=== PATIENT | female | born 1930 | race Caucasian/White ===

== ENCOUNTER 2017-03-08 12:50 | Emergency (ER) | payer MEDICARE, MEDICAID ==
[~2017-03-08] VITALS: Wt 113.4 kg
[~2017-03-08 12:50] MED LIST: ALDACTONE25 M1 PO; ALLOPURINOL300 MG PO; ARTIFICIAL TEAR15 M3 OPH; ARTIFICIAL TEAR15 ML OU; ASPI-COR81 M1 PO; ASPIRIN81 M1 PO; AUGMENTIN 875 M1 TA1 PO; BISACODYL10 MG R; BRIN20TA PO; CALMOSEPTINE1 OIN TP; CELEXA20 MG PO; CELEXA40 MG PO; CIPRO250 MG PO; CIPRO500 MG PO; DETROL2 MG PO; DIABETIC T100 MG/5 M PO; DIABETIC T100 MG/51 PO; DITROPAN5 MG PO; EXEL13.31 T; FLONASE 0.05% 121 EA NAS; HUMALOG100 U/ML SC; HYDROCODONE BIT1 T11 PO; IMDUR30 MG PO; ISOSORBIDE30 MG PO; K-DUR 2020 MEQ PO; K-DUR20 MEQ PO; LASIX40 MG PO; LASIX80 MG PO; LAXATIVE10 MG R; LEVEMIR100 U/ML SC; LOMOTIL 0.025 M1 TA1 PO; LOPRESSOR25 MG PO; Lopressor25 MG PO; MACROBID100 M1 PO; MILK OF MAGNESI1 TAB PO; MINERAL OIL; MIRALAX POWDER17 GM PO; MIRALAX17 GM/PACK PO; MOBIC15 MG PO; MOM30 M1 PO; MOM30 ML PO; MOTRIN400 MG PO; NAMENDA-28 PO; NEURONTIN300 MG PO; NEURONTIN600 MG PO; NKHM; NOVOLIN R100 U/ML SC; OXYBUTYNIN5 MG PO; PRAVACHOL40 MG PO; RISPERDAL M-TA0.5 MG PO; RISPERDAL0.25 MG PO; RISPERDAL0.5 MG PO; SEROQUEL100 MG PO; SEROQUEL25 MG PO; SEROQUEL50 MG PO; SIMETHICONE PO; SYNTHROID0.025 MG PO; TENORMIN0.5 MG/ML IV; TRAMADOL HCL50 MG PO; TYLENOL W/CODEI1 TA2 PO; TYLENOL325 M1 PO; TYLENOL500 MG PO; ULTRAM 50 MG ED2 TAB PO; VITAMIN D1000 IU PO; VITAMIN D400 I1 PO; WELLBUTRIN XL150 MG PO; Wellbutrin Xl150 MG PO; XANAX0.5 MG PO; [UNRECOGNIZED DRUG - CODE] PO; [UNRECOGNIZED DRUG - OTHER] PO; [UNRECOGNIZED DRUG - OTHER] RC
== END 2017-03-08 14:50 ==
LOC: ED 12:50
DX: S01.01XA Laceration without foreign body of scalp, initial encounter (principal); Z88.8 Allergy status to other drugs, medicaments and biological substances; Z79.899 Other long term (current) drug therapy; Z79.02 Long term (current) use of antithrombotics/antiplatelets; Z79.4 Long term (current) use of insulin; W18.39XA Other fall on same level, initial encounter; Y93.89 Activity, other specified; Y92.128 Other place in nursing home as the place of occurrence of the external cause; Y99.8 Other external cause status

== ENCOUNTER 2017-06-17 10:12 | Emergency (ER) | payer MEDICARE, MEDICAID ==
[~2017-06-17] VITALS: Ht 170.1 cm; Wt 113.4 kg
[2017-06-17 11:04] LABS: BASO % 0.5 % (0.0-1.0); EOS # 0.4 10*3/uL (0.0-0.4); EOS % 4.3 % (1.0-4.0); HEMATOCRIT 43.3 % (37.0-47.0); HEMOGLOBIN 14.3 g/dl (12.0-16.0); LYMPH # 3.6 10*3/uL (1.3-4.4); LYMPH % 42.5 % (27.0-41.0); MEAN CELL VOLUME 94.7 fl (81.0-99.0); MEAN CORPUSCULAR HGB 31.3 pg (27.0-31.0); MEAN PLATELET VOLUME 10.5 fl (9.6-12.3); MONO # 0.6 10*3/uL (0.1-1.0); MONO % 7.3 % (3.0-9.0); NEUT # 3.8 10*3/uL (2.3-7.9); NEUT % 45.2 % (47.0-73.0); PLATELET COUNT AUTOMATED 174 10*3/uL (130-400); RED BLOOD COUNT 4.57 10*6/uL (4.10-5.10); RED CELL DISTRI WIDTH 13.9 % (0-14.5); WHITE BLOOD COUNT 8.4 10*3/uL (4.8-10.8)
[2017-06-17 11:19] LABS: ALBUMIN 3.3 gm/dl (3.1-4.5); CREATININE 1.24 mg/dL (0.55-1.02); POTASSIUM 3.9 mmol/L (3.5-5.1); TOTAL PROTEIN 7.4 gm/dL (6.4-8.2)
[2017-06-17 11:21] LABS: BILIRUBIN NEGATIVE (NEGATIVE); BLOOD TRACE-INTACT (NEGATIVE); CLARITY CLOUDY (CLEAR); COLOR YELLOW (YELLOW); GLUCOSE NEGATIVE (NEGATIVE); KETONE NEGATIVE (NEGATIVE); LEUKO ESTERASE 3+ (NEGATIVE); NITRITE POSITIVE (NEGATIVE)
[2017-06-17 11:30] LABS: BACTERIA 4+; WBC TNTC wbc/hpf (0-5)
[2017-06-17] MEDS ORDERED: SEPTDS PO (12:44)
== END 2017-06-17 12:56 | disposition home or self-care (01) ==
LOC: ED 10:12
PROVIDERS: Emergency Medicine
DX: N39.0 Urinary tract infection, site not specified (principal); R41.82 Altered mental status, unspecified; R29.810 Facial weakness; Z79.82 Long term (current) use of aspirin; Z79.899 Other long term (current) drug therapy

== ENCOUNTER 2018-03-30 10:12 | Inpatient (IN) | payer MEDICARE, MEDICAID ==
[~2018-03-30] VITALS: Ht 162.6 cm; Wt 86.3 kg
--- NOTE | ~2018-03-30 | EKG ---
[place], [place] ELECTROCARDIOGRAM REPORT NAME: MOHIT LEY UNIT #: [id number] ROOM: 512 DOCTOR: ADRIANA DRAFT REPORT BIRTHDATE: [birth year] [facility] Test Date: 2018-03-30 Test Time: 10:39:57 Pat Name: MOHIT LYE Department: Room: 512 Gender: F [employer]: EKG.OK : 1930 Requested By: TESHA BUSTAMANTE DNP Order Number: [id number] Reading MD: Shantel Pappas MD Measurements Intervals [place] Rate: 61 P: 72 [place]: 159 QRS: 88 QRSD: 102 T: 76 QT: 431 QTc: 434 Interpretive Statements Sinus rhythm Borderline right axis deviation Electronically Signed On 03-31-2018 3:19:57 PST by Shantel Pappas MD CM:EKGRPT:ELECTROCARDIOGRAM REPORT [id number] TESHA WRIGHT DRAFT REPORT TESHA BUSTAMANTE DNP
[~2018-03-30 10:12] MED LIST changes: +LEVEMIR100 UNIT/1 IV; +SEPTDS PO
[2018-03-30 10:48] LABS: BASO % 0.5 % (0.0-1.0); EOS # 0.5 10*3/uL (0.0-0.4); EOS % 5.4 % (1.0-4.0); HEMATOCRIT 43.9 % (37.0-47.0); HEMOGLOBIN 14.2 g/dl (12.0-16.0); LYMPH # 2.7 10*3/uL (1.3-4.4); LYMPH % 33.1 % (27.0-41.0); MEAN CORPUSCULAR HGB 31.7 pg (27.0-31.0); MEAN CORPUSCULAR HGB CONC 32.3 g/dl (33.0-37.0); MONO # 0.6 10*3/uL (0.1-1.0); MONO % 7.3 % (3.0-9.0); NEUT # 4.4 10*3/uL (2.3-7.9); NEUT % 53.5 % (47.0-73.0); PLATELET COUNT AUTOMATED 162 10*3/uL (130-400); RED BLOOD COUNT 4.48 10*6/uL (4.10-5.10); RED CELL DISTRI WIDTH 13.8 % (0-14.5); WHITE BLOOD COUNT 8.3 10*3/uL (4.8-10.8)
[2018-03-30 11:00] LABS: ACT PARTIAL THROMBO TIME 20.3 SECONDS (20.8-31.5)
[2018-03-30 11:02] VITALS: BP 114/35
[2018-03-30 11:05] LABS: ALBUMIN 3.3 gm/dl (3.1-4.5); ALKALINE PHOSPHATASE 124 U/L (45-117); BUN 19 mg/dl (7-24); CHLORIDE 105 mmol/L (98-107); CREATININE 1.27 mg/dL (0.55-1.02); SGOT/AST 20 IU/L (3-35); SGPT/ALT 20 U/L (12-78); SODIUM 141 mmol/L (136-145); TOTAL PROTEIN 7.3 gm/dL (6.4-8.2)
[2018-03-30 11:09] LABS: TROPONIN I < 0.015 ng/ml (<0.045)
[2018-03-30 11:56] VITALS: BP 105/38
[2018-03-30 11:59] LABS: BILIRUBIN NEGATIVE (NEGATIVE); BLOOD NEGATIVE (NEGATIVE); CLARITY CLOUDY (CLEAR); COLOR YELLOW (YELLOW); GLUCOSE NEGATIVE (NEGATIVE); KETONE NEGATIVE (NEGATIVE); LEUKO ESTERASE 1+ (NEGATIVE); NITRITE POSITIVE (NEGATIVE); SPECIFIC GRAVITY 1.015 (1.005-1.030); UROBILINOGEN 0.2 E.U./dl (0.2-1.0)
[2018-03-30 12:18] LABS: BACTERIA 4+; WBC 31-40 wbc/hpf (0-5)
[2018-03-30 12:51] VITALS: BP 116/59
[2018-03-30 13:17] VITALS: BP 121/67
[2018-03-30] MEDS ORDERED: HUMALOG100 UNIT/1 SQ (15:13)
[2018-03-30] MEDS ORDERED: HUMALOG100 UNIT/2 SQ (15:13)
[2018-03-30] MEDS ORDERED: LACTULOSE20 GM/30 M PO (15:15)
[2018-03-30] MEDS ORDERED: LEVEMIR100 UNIT/1 IV (15:23)
[2018-03-30] MEDS ORDERED: TOPROL XL25 MG PO (15:26)
[2018-03-30] MEDS ORDERED: NAMENDA10 MG PO (15:32)
[2018-03-30] MEDS ORDERED: K-TAB20 MEQ PO (15:36)
[2018-03-30 20:00] VITALS: BP 131/39
[2018-03-31 06:33] LABS: BASO # 0.1 10*3/uL (0.0-0.1); BASO % 0.6 % (0.0-1.0); EOS # 0.4 10*3/uL (0.0-0.4); HEMATOCRIT 43.9 % (37.0-47.0); HEMOGLOBIN 14.3 g/dl (12.0-16.0); LYMPH # 2.7 10*3/uL (1.3-4.4); LYMPH % 30.6 % (27.0-41.0); MEAN CELL VOLUME 96.7 fl (81.0-99.0); MEAN CORPUSCULAR HGB 31.5 pg (27.0-31.0); MEAN CORPUSCULAR HGB CONC 32.6 g/dl (33.0-37.0); MEAN PLATELET VOLUME 11.1 fl (9.6-12.3); MONO # 0.7 10*3/uL (0.1-1.0); MONO % 7.9 % (3.0-9.0); NEUT # 4.9 10*3/uL (2.3-7.9); NEUT % 56.4 % (47.0-73.0); PLATELET COUNT AUTOMATED 186 10*3/uL (130-400); RED BLOOD COUNT 4.54 10*6/uL (4.10-5.10); RED CELL DISTRI WIDTH 13.6 % (0-14.5); WHITE BLOOD COUNT 8.7 10*3/uL (4.8-10.8)
[2018-03-31 06:45] LABS: POTASSIUM 3.7 mmol/L (3.5-5.1)
[2018-03-31 06:52] LABS: ALBUMIN 3.3 gm/dl (3.1-4.5); CREATININE 1.12 mg/dL (0.55-1.02); FREE T4 1.03 ng/dl (0.76-1.46); PHOSPHOROUS 2.6 mg/dL (2.5-4.9); THYROID STIM HORMONE (HS) 1.48 uIU/ml (0.358-4.75); TOTAL PROTEIN 7.5 gm/dL (6.4-8.2)
[2018-03-31 07:46] LABS: VITAMIN D, 25-HYDROXY 9.1 ng/mL (30-100)
[2018-03-31 08:00] VITALS: BP 132/56
[2018-03-31 12:00] VITALS: BP 135/60
[2018-03-31 16:00] VITALS: BP 143/52
[2018-03-31] MEDS ORDERED: VICODIN 5-3001 EACH PO (16:09)
[2018-03-31] MEDS ORDERED: XANAX0.5 MG PO (16:09)
== END 2018-03-31 16:15 | DRG 291 ==
LOC: ED 10:12 → 5E 13:34 → EDHOLD 13:34 → 5E 13:47
PROVIDERS: Nurse Practitioner Family; Registered Nurse
DX: I13.0 Hypertensive heart and chronic kidney disease with heart failure and stage 1 through stage 4 chronic kidney disease, or unspecified chronic kidney disease (principal); I50.33 Acute on chronic diastolic (congestive) heart failure; N30.00 Acute cystitis without hematuria; F03.91 Unspecified dementia, unspecified severity, with behavioral disturbance; N18.3 Chronic kidney disease, stage 3 (moderate); E11.22 Type 2 diabetes mellitus with diabetic chronic kidney disease; F31.9 Bipolar disorder, unspecified; M81.0 Age-related osteoporosis without current pathological fracture; E11.40 Type 2 diabetes mellitus with diabetic neuropathy, unspecified; E83.41 Hypermagnesemia; M10.9 Gout, unspecified; E03.9 Hypothyroidism, unspecified; Z66 Do not resuscitate; Z51.5 Encounter for palliative care; S40.011A Contusion of right shoulder, initial encounter; G89.29 Other chronic pain; E11.65 Type 2 diabetes mellitus with hyperglycemia; W05.0XXA Fall from non-moving wheelchair, initial encounter; Y93.89 Activity, other specified; Y92.128 Other place in nursing home as the place of occurrence of the external cause; Y99.8 Other external cause status; Z87.440 Personal history of urinary (tract) infections; Z88.8 Allergy status to other drugs, medicaments and biological substances; Z79.899 Other long term (current) drug therapy; Z79.4 Long term (current) use of insulin; Z79.82 Long term (current) use of aspirin; Z90.710 Acquired absence of both cervix and uterus; Z90.49 Acquired absence of other specified parts of digestive tract

== ENCOUNTER → 2018-04-21 | Outpatient (CLI) | payer MEDICARE, MEDICAID ==
[~2018-04-21] MED LIST changes: +ALUM-MAG HYDRO360 ML PO; +CEFUROXIME250 MG PO; +CRANBERRY200 MG PO; +HUMALOG100 UNIT/1 SQ; +HUMALOG100 UNIT/2 SQ; -HYDROCODONE BIT1 T11 PO; +IMDUR SA60 M1 PO; +K-TAB20 MEQ PO; +LACTULOSE20 GM/30 M PO; -LEVEMIR100 UNIT/1 IV; +LEVEMIR100 UNIT/1 SC; +LEVOFLOXACIN500 MG PO; +MIRALAX POWDER17 G1 PO; -MIRALAX POWDER17 GM PO; +NAMENDA10 MG PO; +NITROSTAT0.4 MG SL; +NORCO 5-325 TA1 EACH PO; +SYNTHROID25 MCG PO; +THERAPEUTIC SH177 ML T; +TOPROL XL25 MG PO; +VICODIN 5-3001 EACH PO
== END | disposition home or self-care (01) ==
LOC: CT 03:48
DX: N26.1 Atrophy of kidney (terminal) (principal); R31.9 Hematuria, unspecified